=== PATIENT | male | born 1965 | race Caucasian/White ===

== ENCOUNTER → 2019-12-02 | Day surgery (SDC) | payer BC ==
[~2019-12-02] MED LIST: Propofol 200 MG/20 ML SDV IV ONE; fentaNYL 100 MCG/2 ML SDV IV ONE
[2019-12-02] MEDS: Lactated Ringers 1,000 ML IV SCH (08:28)
--- NOTE | 2019-12-02 15:49 | OR ---
DATE OF OPERATION: 12/02/2019 PREOPERATIVE DIAGNOSIS: 1. DYSPEPSIA. 2. GASTROESOPHAGEAL REFLUX DISEASE. POSTOPERATIVE DIAGNOSIS: 1. DYSPEPSIA. 2. GASTROESOPHAGEAL REFLUX DISEASE. SURGEON: Quique Novak MD PROCEDURE: EGD WITH BIOPSIES X3, JUSTINA. ANESTHESIA: MAC. COMPLICATIONS: None. SPECIMEN: 1. Duodenal bulb biopsy x1. 2. Antral biopsy x2. 3. Antral JUSTINA. FINDINGS: 1. Full-length EGD. 2. Moderate active antral gastritis with multiple focal erosions. 3. Mild duodenitis, duodenal bulb. RECOMMENDATIONS: Medical followup with Dr. Baltazar. The patient already on proton pump therapy. Treat JUSTINA per pending report. INDICATIONS: The patient had been having some ongoing issues with dyspepsia, reflux, and belching, and some epigastric pain, and we had a recent HIDA scan which results are not back yet. Dr. Baltazar sent him for diagnostic EGD. DESCRIPTION OF PROCEDURE: The patient was prepped and draped, placed in the left lateral decubitus position. A lubricated Olympus gastroscope was inserted over a bit, advanced to cricopharyngeus area, and easily intubated in the esophagus. The esophageal lining was benign in its entire course. Z-line crisp and sharp at 40 cm. No spontaneous reflux was visualized. There was no hiatal hernia. No distal esophagitis, stricturing, ulceration, or Clemons's changes. The scope was advanced into the stomach, through the pylorus, and into the second portion of the duodenum. This was benign. The duodenal bulb had some very mild signs of active duodenitis without any ulceration or erosion. A biopsy was taken. The scope was brought back into the stomach and retroflexed. The upper fundus and cardia were unremarkable. Upon straightening, the rest of the fundus was benign. The patient's [id number] portion of the antrum was diffusely inflamed, consistent with gastritis. There were multiple small focal erosions without active bleeding. Two biopsies were taken of group sales representative areas. CLOtest was obtained of an unaffected portion of the antrum. Air was then suctioned from the stomach and scope removed without complication. DESTINEE/ALEXANDRA /[id number]
== END ==
LOC: CC.SDS 08:00
PROVIDERS: ATTEND Family Medicine
DX: K29.70 Gastritis, unspecified, without bleeding (principal); K29.80 Duodenitis without bleeding; K21.9 Gastro-esophageal reflux disease without esophagitis; I78.1 Nevus, non-neoplastic; K31.89 Other diseases of stomach and duodenum; E78.5 Hyperlipidemia, unspecified; Z79.82 Long term (current) use of aspirin; Z79.899 Other long term (current) drug therapy
CPT/HCPCS: 43239; 87081; J2704; J3010; J7120